=== PATIENT | female | born 1995 | race Caucasian/White ===

== ENCOUNTER 2016-11-11 22:49 | Emergency (ER) | payer OTHER ==
[~2016-11-11] VITALS: Ht 170.2 cm; Wt 75.7 kg
[~2016-11-11 22:49] MED LIST: ALBUAER2 PO; MONT1TAB3 PO; NORETAB3 PO
[2016-11-11 23:00] VITALS: Ht 170.2 cm; Wt 75.7 kg
[2016-11-11] MEDS ORDERED: SODIUM CHLORIDE 0.9% 1000ML 2,000 ML IV STA (23:07)
[2016-11-11] MEDS ORDERED: KETOROLAC TROMETHAMINE 30 MG/ML VIAL IV STA (23:07)
[2016-11-11] MEDS ORDERED: ACETAMINOPHEN 500 MG TAB PO STA (23:07)
[2016-11-11] MEDS ORDERED: ALBUT/IPRATROP 3MG/0.5MG NEB 3 ML VIAL INH STA (23:10)
[2016-11-11] MEDS ORDERED: DEXAMETHASONE SOD INJ 10 MG/ML VIAL IV ONE (23:15)
[2016-11-11] MEDS ORDERED: JNLF153028 PO (23:49)
[2016-11-11] MEDS ORDERED: ATR10 PO (23:49)
[2016-11-11 23:59] LABS: BASO % 0.2 %; BASO ABS # 0.02 K/uL (0-0.2); COMPLETE YES; EOS % 1.5 %; HEMATOCRIT 36.5 % (37-47); IG% 0.3 %; LYMPH % 21.1 %; LYMPH ABS # 2.61 K/uL (1.2-3.4); MEAN CELL VOLUME 89.2 fL (80-100); MEAN CORPUSCULAR HEMOGLOBIN 31.1 pg (25-34); MEAN CORPUSCULAR HGB CONC 34.8 g/dl (32-36); MEAN PLATELET VOLUME 9.6 fL (7.4-10.4); MONO % 8.3 %; NEUT % 68.6 %; PLATELET COUNT 291 K/uL (130-400); RED BLOOD COUNT 4.09 M/uL (4.2-5.4); WHITE BLOOD COUNT 12.39 K/uL (4.8-10.8)
[2016-11-12 00:18] LABS: BUN/CREATININE RATIO 11.7 (10-20); CALCIUM 8.7 mg/dl (8.5-10.1); CREATININE 0.81 mg/dl (0.60-1.20); POTASSIUM 3.6 mmol/L (3.5-5.1)
[2016-11-12 00:20] LABS: PREG INTERNAL NEGATIVE QC NEG CLEAR BACKGROUND; PREG INTERNAL POSITIVE QC POS CONTROL LINE
[2016-11-12 02:13] LABS: INFLUENZA A PCR Neg for Influ A (NEG); INFLUENZA B PCR Neg for Influ B (NEG)
[2016-11-12 02:32] VITALS: BP 128/71; PULSE 91; TEMP 36.8; O2SAT 98
--- NOTE | 2016-11-12 03:13 | EMERGENCY ROOM VISIT NOTE ---
History First contact with patient: 23:05 Chief Complaint: FEVER Stated Complaint: LOSS OF APPETITE,SORE THROAT,TIRED FEVER History of Present Illness The patient is a 21 year old female who presents to the Emergency Room with complaints of fever, swollen submandibular parotid glands, throat discomfort, fatigue, body aches and pains for the past week. Patient denies chest pain, dyspnea, neck stiffness, earache, sinus pain or congestion, productive cough, abdominal pain. She is tolerating by mouth fluids and food. Other kids at school are sick. Immunizations are current. No recent travel. Review of Systems See HPI for pertinent positives & negatives. A total of 10 systems reviewed and were otherwise negative. Past Medical/Surgical History Asthma, IBS Social History Smoking Status: Never Smoker Smokeless Tobacco Use: No Alcohol Use: none Drug Use: none Marital Status: in relationship Occupation Status: [employer] student Current/Historical Medications Scheduled Ethinyl Estradiol/Norethindr (), 1 TAB PO DAILY Montelukast Sodium (Singulair), 10 MG PO DAILY Scheduled PRN Hydroxyzine HCl (Hydroxyzine HCl), 10 MG PO TID PRN for ALLERGY SX Allergies Coded Allergies: No Known Allergies (Unverified , 11/11/16) Physical Exam Vital Signs Date Time Temp Pulse Resp B/P Pulse Ox O2 Delivery O2 Flow Rate FiO2 11/12/16 02:32 36.8 91 18 128/71 98 11/12/16 02:25 91 18 128/71 98 Room Air 11/12/16 01:09 36.8 87 18 128/86 98 Room Air 11/11/16 23:00 38.4 108 18 138/96 98 Room Air Pain Rating (0-10): 0 Physical Exam VITALS: Vitals are noted on the nurse's note and reviewed by myself. Vital signs overall. GENERAL: Pleasant female, in no acute distress, nondiaphoretic, well-developed well-nourished. SKIN: The skin was without rashes, erythema, edema, or bruising. There is no tenting of the skin. Capillary reflex less than 2 seconds. HEAD: Normocephalic atraumatic. EARS: External auditory canals clear, tympanic membranes pearly victor without erythema or effusion bilaterally. EYES: Pupils equal round and reactive to light and accommodation. Conjunctivae without injection, sclerae without icterus. Extraocular movements intact. NOSE: Patent, turbinates without inflammation or discharge. No sinus tenderness. MOUTH: Mucous membranes moist. Tonsils are minimally enlarged. Pharynx without erythema or exudate. Uvula midline. Airway patent. Tongue does not deviate. NECK: Supple without nuchal rigidity. Submandibular lymphadenopathy. Bilateral minimal parotid gland swelling No thyromegaly. Cervical spine is nontender. No JVD. No meningeal signs HEART: Regular rate and rhythm without murmurs gallops or rubs. LUNGS: Clear to auscultation bilaterally without wheezes, rales or rhonchi. No dullness to percussion. No retractions or accessory muscle use. ABDOMEN: Positive bowel sounds x 4. Normal tympanic percussion. Soft, nontender, without masses or organomegaly. Millan sign negative. No guarding or rebound tenderness. MUSCULOSKELETAL: No muscle atrophy, erythema, or edema noted. NEURO: Patient was alert and oriented to person place and time. Normal sensation to light and sharp touch. No focal neurological deficits. Medical Decision & Procedures Laboratory Results 11/11/16 23:27 Red Blood Count 4.09, Mean Corpuscular Volume 89.2, Mean Corpuscular Hemoglobin 31.1, Mean Corpuscular Hemoglobin Concent 34.8, Mean Platelet Volume 9.6, Neutrophils (%) (Auto) 68.6, Lymphocytes (%) (Auto) 21.1, Monocytes (%) (Auto) 8.3, Eosinophils (%) (Auto) 1.5, Basophils (%) (Auto) 0.2, Neutrophils # (Auto) 8.50, Lymphocytes # (Auto) 2.61, Monocytes # (Auto) 1.03, Eosinophils # (Auto) 0.19, Basophils # (Auto) 0.02 11/11/16 23:27 Test 11/11/16 23:27 11/11/16 23:40 11/12/16 01:05 White Blood Count 12.39 K/uL (4.8-10.8) Red Blood Count 4.09 M/uL (4.2-5.4) Hemoglobin 12.7 g/dL (12.0-16.0) Hematocrit 36.5 % (37-47) Mean Corpuscular Volume 89.2 fL (80-100) Mean Corpuscular Hemoglobin 31.1 pg (25-34) Mean Corpuscular Hemoglobin Concent 34.8 g/dl (32-36) Platelet Count 291 K/uL (130-400) Mean Platelet Volume 9.6 fL (7.4-10.4) Neutrophils (%) (Auto) 68.6 % Lymphocytes (%) (Auto) 21.1 % Monocytes (%) (Auto) 8.3 % Eosinophils (%) (Auto) 1.5 % Basophils (%) (Auto) 0.2 % Neutrophils # (Auto) 8.50 K/uL (1.4-6.5) Lymphocytes # (Auto) 2.61 K/uL (1.2-3.4) Monocytes # (Auto) 1.03 K/uL (0.11-0.59) Eosinophils # (Auto) 0.19 K/uL (0-0.5) Basophils # (Auto) 0.02 K/uL (0-0.2) RDW Standard Deviation 40.3 fL (36.4-46.3) RDW Coefficient of Variation 12.4 % (11.5-14.5) Immature Granulocyte % (Auto) 0.3 % Immature Granulocyte # (Auto) 0.04 K/uL (0.00-0.02) Anion Gap 9.0 mmol/L (3-11) Est Creatinine Clear Calc Drug Dose 116.6 ml/min Estimated GFR () 120.3 Estimated GFR (Non- 103.8 BUN/Creatinine Ratio 11.7 (10-20) Calcium Level 8.7 mg/dl (8.5-10.1) Human Chorionic Gonadotropin, Qual NEG (NEG) Monoscreen NEG (NEG) Influenza Type A (RT-PCR) Neg for Influ A (NEG) Influenza Type A Antigen Neg for Influ A (NEG) Influenza Type B Antigen Neg for Influ B (NEG) Influenza Type B (RT-PCR) Neg for Influ B (NEG) Medications Administered Medications (Trade) Dose Ordered Sig/Jose Route Start Time Stop Time Status Last Admin Dose Admin Sodium Chloride (Nss 1000ml) 2,000 ml @ 999 mls/hr Q2H1M STAT IV 11/11/16 23:07 11/12/16 01:07 DC 11/11/16 23:33 999 MLS/HR Dexamethasone Sodium Phosphate (Decadron Inj) 10 mg NOW ONCE IV 11/11/16 23:15 11/11/16 23:16 DC 11/11/16 23:32 10 MG Ketorolac Tromethamine (Toradol Inj) 30 mg NOW STAT IV 11/11/16 23:07 11/11/16 23:09 DC 11/11/16 23:33 30 MG Acetaminophen (Tylenol Tab) 1,000 mg NOW STAT PO 11/11/16 23:07 11/11/16 23:09 DC 11/11/16 23:32 1,000 MG Albuterol/ Ipratropium (Duoneb) 3 ml NOW STAT INH 11/11/16 23:10 11/11/16 23:11 DC 11/11/16 23:32 3 ML ED Course Prior records/ancillary studies reviewed. Triage Nursing notes reviewed. Additional history obtained from friend. The patient's history was concerning for fever. Differential diagnosis: Etiologies such as viral syndrome, otitis, pharyngitis, pneumonia, influenza, meningitis, mumps, mono, sepsis, bacteremia, as well as others were entertained. Physical examination: Patient is alert, interactive without meningeal signs ER treatment provided: Tylenol, IV fluids, Toradol On reassessment the patient felt better. Diagnostics interpreted by me: The labs revealed leukocytosis. Negative flu. Negative mono. Negative strep test. Mumps test is pending Imaging studies: Chest x-ray with no acute consolidation, pneumothorax or free air per my interpretation This appears to be consistent with fever most likely viral in etiology. Patient did have some submandibular edema and lymph enlargement so mumps testing was ordered as she is a college student at [employer]. Patient felt much better and requested to leave. She is advised to stay at home for the next 5 days as she is contagious until the concerns for mumps is ruled out. School note was written. She is advised to follow-up health services in a week or here in the ER sooner for high fevers, lethargy, neck stiffness, worsening signs or symptoms or as needed. By the evaluation outlined above emergent etiologies such as otitis, pharyngitis, pneumonia, meningitis, urinary tract infection, sepsis, bacteremia, as well as others were deemed relatively unlikely. The pt informed about the findings as listed above. All questions were answered and pleased with the treatment. Return instructions were outlined and the patient was discharged in stable condition. Referral: The patient was referred back to their primary care physician for follow-up in 6 -7 days for a recheck of the current condition. Case reviewed with my attending Medical Decision As above Impression Primary Impression: Fever Departure Information Dispostion Home / Self-Care Condition GOOD Referrals No Doctor, Assigned (PCP) Forms HOME CARE DOCUMENTATION FORM, School Instructions, Return To School: 5 days IMPORTANT VISIT INFORMATION Patient Instructions Fever - [facility], My [facility] Additional Instructions You must stay in your apartment for the next 5 days. You are contagious. Acetaminophen(Tylenol) may be used for fever or pain. Use 1000mg every six hours as needed. Avoid using more than 3000mg in a 24 hour period. (AND/OR) Ibuprofen(Motrin, Advil) may be used for fever or pain. Use 600mg every six hours as needed. Take with food. Avoid using more than 2400mg in a 24 hour period. Do not use 2400mg per day for more than three consecutive days without physician direction. Prolonged inappropriate use can lead to stomach upset or ulcers. Afrin nasal spray: 2-3 sprays to each nostril twice daily as needed for congestion. Do not use for more than 3-4 days because it can lead to worsening rebound congestion. Pseudoephedrine(Sudaphed): 30-60mg every 6 hours as needed for nasal congestion. Do not take this with other stimulant products or supplements. Rest and drink plenty of fluids. Controlling your fever with Tylenol and Ibuprofen as above will make you feel better. Wash your hands after nose blowing, sneezing, or coughing. Most germs are spread through contact, therefore improper hygiene may result in your close contacts and loved ones becoming ill just like you. Continue current medications. Return to the ER for severe headache, neck stiffness, chest pain, difficulty breathing, fevers, vomiting, worsening of your condition, or as needed. Follow up with your primary physician this week for a recheck of your current condition. School Instructions Return To School: 5 days Problem Qualifiers Primary Impression: Fever Fever type: unspecified Qualified Codes: R50.9 - Fever, unspecified
--- NOTE | 2016-11-12 06:58 | DIAGNOSTIC IMAGING REPORT ---
CHEST 2 VIEWS ROUTINE CLINICAL HISTORY: Cough. Fever. COMPARISON STUDY: No previous studies for comparison. FINDINGS: Lung volumes are normal. Lungs are clear. There is no pneumothorax or pleural effusion. Cardiac size is normal. Mediastinal contours are normal. There is no evidence of pulmonary edema. IMPRESSION: No acute cardiopulmonary findings. Electronically signed by: Kyree Curry M.D. 11/12/2016 6:56 AM Dictated Date/Time: 11/12/2016 6:55 AM
== END 2016-11-12 02:33 | disposition home or self-care (01) ==
LOC: C.EDB 22:50 → C.EDC 11-12 02:33
DX: R50.9 Fever, unspecified (principal); J45.909 Unspecified asthma, uncomplicated; R59.0 Localized enlarged lymph nodes; K58.9 Irritable bowel syndrome, unspecified; Z79.3 Long term (current) use of hormonal contraceptives; Z79.899 Other long term (current) drug therapy